=== PATIENT | male | born 1990 | race Caucasian/White ===

== ENCOUNTER 2017-10-20 19:46 | Emergency (ER) | payer BC, OTHER ==
[2017-10-20 20:18] VITALS: BP 149/107
[2017-10-20] MEDS ORDERED: Lidocaine 1% MPF* 2 ML VIAL INJ ONE (20:40)
[2017-10-20] MEDS ORDERED: Lidocaine 1% MPF* 2 ML VIAL ONE (20:47)
--- NOTE | 2017-10-20 20:53 | UC ---
Laceration HPI - HPI Summary HPI Summary: 26 y/o male presents to the urgent care c/o cutting his left thumb with a knife s/p cutting a bagel around 1900pm. Bleeding stopped with pressure. Last TD is more than 5years. Pain is 3/10. Pt denies fever, numbness or tingling over the thumb. He can move finger w/o any difficulty. - History Of Current Complaint Chief Complaint: UCLaceration Stated Complaint: THUMB LAC Time Seen by Provider: 10/20/17 20:40 Hx Obtained From: Patient Laceration Location: Finger - left thumb Mechanism Of Injury: Sharp Trauma Onset/Duration: Sudden Onset, Lasting Minutes, Still Present Severity: Mild Pain Intensity: 3 Pain Scale Used: 0-10 Numeric Aggravating Factors: Movement Related History: Dominant Hand Right - Allergies/Home Medications Allergies/Adverse Reactions: Allergies Allergy/AdvReac Type Severity Reaction Status Date / Time No Known Allergies Allergy Verified 10/20/17 20:17 PMH/Surg Hx/FS Hx/Imm Hx Previously Healthy: Yes Respiratory History: Asthma - Surgical History Surgical History: None - Family History Known Family History: Positive: Hypertension, Diabetes - Social History Occupation: Employed Full-time Lives: With Family Alcohol Use: Occasionally Substance Use Type: None Smoking Status (MU): Never Smoked Tobacco - Immunization History Most Recent Tetanus Shot: 2011 Review of Systems Constitutional: Negative Skin: Other - superficial laceration of lefth thumb Eyes: Negative ENT: Negative Respiratory: Negative Cardiovascular: Negative Gastrointestinal: Negative Genitourinary: Negative Motor: Negative Neurovascular: Negative Musculoskeletal: Negative Neurological: Negative Psychological: Negative Is Patient Immunocompromised?: No All Other Systems Reviewed And Are Negative: Yes Physical Exam Triage Information Reviewed: Yes Vital Signs: Initial Vital Signs Temp 98 F 10/20/17 20:14 Pulse 82 10/20/17 20:14 Resp 16 10/20/17 20:14 BP 149/107 10/20/17 20:14 - Additional Comments Vital Signs Reviewed: Yes General: well developed, well nourished male sitting in the examining table w/o any apparent distress Eye Exam: Normal Eyes: Positive: Conjunctiva Clear - PERRLA, EOMI, fundi grossly normal ENT: Positive: Normal ENT inspection, Hearing grossly normal, Pharynx normal, TMs normal Neck: Positive: Supple, Nontender, No Lymphadenopathy Respiratory: Positive: Chest non-tender, Lungs clear, Normal breath sounds, No respiratory distress Cardiovascular: Positive: RRR, No Murmur, Pulses Normal, Brisk Capillary Refill Abdomen Description: Positive: Nontender, No Organomegaly, Soft. Negative: CVA Tenderness (R), CVA Tenderness (L) Bowel Sounds: Positive: Present Musculoskeletal: Positive: Strength Intact, ROM Intact, No Edema Neurological: Positive: Alert, Muscle Tone Normal Psychological Exam: Normal Skin: Positive:ventral side of left #1 distal phalanxa with superficial laceration about 1.8cm in size, bleeding stopped, no foreign body observed. mild tenderness to palpation, FROM of left phalanx, sensation intact, capillary refill brisk, and pulses WNL. Laceration Repair - Laceration Repair 1 Description: Linear : No Repair Necessary Laceration Size After Repair: Length (cm) - 1.8cm Modified For Repair: No Type Injection: Local Anesthesia Used: 1.0% Lido Cleansing Completed Via Routine Prep: Yes Irrigation With Pressure Irrigation Device: Yes Closure Material: Sutures - 4 Closure Method: Single Layer Suture Of: Skin Suture Type: Nylon Laceration Course/Dx - Course/Dx Course Of Treatment: 26 y/o male presents to the urgent care c/o cutting his left thumb with a knife s/p cutting a bagel around 1900pm. Bleeding stopped with pressure. Last TD is more than 5years. Pain is 3/10. Pt denies fever, numbness or tingling over the thumb. He can move finger w/o any difficulty.Hx obtained.left #2 phalanz with a superficial laceration about 1.8cm in size w on the palmar side. Copious irrigation was done with saline by the nurse and the wound explored. There was no FB or deep structure injury noted. FROM of LF # 1 phalanx. procedure was explained and consent obtained, Timeout performed. The wound was anesthetized with 2 mL of 1% lido with good anesthesia. Sterile drape and prep were don. There were 4 sutures with 5.0 nylon type of suture. The length of the wound after closure was 1.8m. No debridement done. Wound was covered bacitracin with sterile nonadherent dressing. The Pt tolerated the procedure well without adverse effects. Neurovascular intact and FROM. Tdap ordered and applied by nurse. Pt advised to f/u suture removal in 10 days and if any signs of infection develop to immediately return to the urgent care of PCP for further management and treatment. Pt understood and agreed and left the clinic ambulating A&Ox3. - Differential Dx - Laceration/Wound Differental Diagnoses: Abrasion, Laceration, Puncture Wound, Tendon Laceration Provider Diagnoses: 1- Left #1 distal phalanx with superficial laceration on ventral side. 2- Elevated BP w/o Hx of HTN Discharge - Discharge Plan Condition: Stable Disposition: HOME Prescriptions: Bacitracin OINTMENT* 1 applic TOPICAL TID #1 tube Patient Education Materials: Care For Your Stitches (ED), Finger Laceration (ED ), Low Sodium Diet (ED) Referrals: [facility] [place] [facility] [Outside] Additional Instructions: 1-Please apply topical oint antibiotic as directed 2- Keep wound clean and dry and avoid excessive movement w/ your thumb. 3- F/u suture removal in 10-12 days w/ your PCP or here at the urgent care. 4-Take Ibuprofen or Tylenol PO q6-8hrs prn for pain or swelling. 5- If you develop fever or redness around your finger despite the antibiotic please go to the ER immediately or return to the Urgent care. 6-Your BP is elevated today. please decrease salt in your diet, monitor BP and if it continues to be elevated please f/u with your PCP for further management
[2017-10-20] MEDS ORDERED: Diphth/Teta/Acell Pertusis* 0.5 ML VIAL ** FOR 6 WKS TO 7 YRS OLD IM ONE (21:09)
[2017-10-20] MEDS ORDERED: Tetan/Diph/Pertus SYR(Tdap)* 0.5 ML SYR(BOOSTRIX) use SYR IM ONE ×2 (21:20→21:21)
== END 2017-10-20 21:30 | disposition home or self-care (01) ==
LOC: UCEAST 19:46
DX: S61.012A Laceration without foreign body of left thumb without damage to nail, initial encounter (principal); W26.0XXA Contact with knife, initial encounter; Y93.G1 Activity, food preparation and clean up; Y92.9 Unspecified place or not applicable; Z23 Encounter for immunization; R03.0 Elevated blood-pressure reading, without diagnosis of hypertension; J45.909 Unspecified asthma, uncomplicated
CPT/HCPCS: 12001; 90471; 90715; 99212; G0463

== ENCOUNTER 2017-11-01 10:36 | Emergency (ER) | payer BC ==
[2017-11-01 11:37] VITALS: BP 140/74
--- NOTE | 2017-11-01 11:39 | UC ---
Laceration HPI - HPI Summary HPI Summary: Patient had four sutures placed in left thumb 12 days ago. Here for removal. Has not had any problems such as pain, swelling, redness, or drainage. - History Of Current Complaint Chief Complaint: UCLaceration Stated Complaint: SUTURE REMOVAL Time Seen by Provider: 11/01/17 11:38 Hx Obtained From: Patient Laceration Location: Finger - Allergies/Home Medications Allergies/Adverse Reactions: Allergies Allergy/AdvReac Type Severity Reaction Status Date / Time No Known Allergies Allergy Verified 11/01/17 11:37 PMH/Surg Hx/FS Hx/Imm Hx Previously Healthy: Yes - Surgical History Surgical History: None - Family History Known Family History: Positive: None, Hypertension, Diabetes - Social History Occupation: Employed Full-time Lives: Alone Alcohol Use: Occasionally Substance Use Type: None Smoking Status (MU): Never Smoked Tobacco - Immunization History Most Recent Influenza Vaccination: 08/2017 Most Recent Tetanus Shot: 10/20/17 Review of Systems Constitutional: Negative Skin: Other - Healed laceration to left thumb Respiratory: Negative Cardiovascular: Negative Neurological: Negative All Other Systems Reviewed And Are Negative: Yes Physical Exam Triage Information Reviewed: Yes Appearance: Well-Appearing, Well-Nourished Vital Signs: Initial Vital Signs Temp 97.4 F 11/01/17 11:32 Pulse 86 11/01/17 11:32 Resp 18 11/01/17 11:32 BP 140/74 11/01/17 11:32 Pulse Ox 100 11/01/17 11:32 Vital Signs Reviewed: Yes Neck: Positive: Supple, Nontender, No Lymphadenopathy Respiratory: Positive: Chest non-tender, Lungs clear, Normal breath sounds, No respiratory distress Cardiovascular: Positive: RRR, No Murmur, Pulses Normal, Brisk Capillary Refill Musculoskeletal: Positive: Strength Intact - Left thumb, ROM Intact - Left thumb , No Edema Neurological: Positive: Alert, Other: - Sensations intact left thumb Psychological: Positive: Age Appropriate Behavior Skin: Positive: Other - Healed with great approximation ~1cm linear laceration to ventral thumb pad. Four nylon interrupted sutures in place. No erythema, edema, or drainage. Laceration Course/Dx - Course/Dx Course Of Treatment: Four nylon sutures removed from left thumb. Pt tolerated well. Well healed with no dehiscence. No need for steri-strips. - Differential Dx - Laceration/Wound Differental Diagnoses: Laceration Provider Diagnoses: 1cm Laceration to left thumb - suture removal (4) Discharge - Discharge Plan Condition: Stable Disposition: HOME Patient Education Materials: Stitches Removal (ED) Referrals: [facility] [place] [facility] [Outside] - 2 Weeks No Primary Care Phys,NOPCP [Primary Care Provider] - Additional Instructions: If you develop a fever, SOB, chest pain, new or worsening symptoms - please call your PCP or go to the ED. Your blood pressure was high at todays visit. Please see your primary provider within 4 weeks for recheck and re-evaluation.
== END 2017-11-01 11:47 | disposition home or self-care (01) ==
LOC: UCEAST 10:36
DX: S61.012D Laceration without foreign body of left thumb without damage to nail, subsequent encounter (principal); X58.XXXD Exposure to other specified factors, subsequent encounter; Y92.9 Unspecified place or not applicable
CPT/HCPCS: 99211; G0463